=== PATIENT | female | born 1980 | race Caucasian/White ===

== ENCOUNTER 2022-12-13 11:44 | Outpatient (REF) | payer MEDICAID, SELFPAY ==
[2022-12-13 14:49] LABS: Estimated Average Glucose 134 mg/dL; Hemoglobin A1C 149.0862 umol/L; Hemoglobin A1c % 6.3 %
[2022-12-13 15:13] LABS: Alanine Aminotransferase 14 U/L (0-31); Albumin Level 3.9 g/dL (3.5-5.0); Alkaline Phosphatase 86 U/L (39-117); Anion Gap 17 (12-20); Aspartate Amino Transferase 12 U/L (5-31); Bilirubin Total 0.2 mg/dL (0.0-1.0); Blood Urea Nitrogen 11 mg/dL (9-16); Calcium 9.3 mg/dL (8.4-10.2); Carbon Dioxide 21 mmol/L (22-29); Chloride 106 mmol/L (96-108); Cholesterol 140 mg/dL; Estimated Glomerular Filt Rate > 60; Glucose Fasting 130 mg/dL (60-99); HDL Cholesterol 49 mg/dL; LDL Cholesterol Calculated 62 mg/dl; Sodium 140 mmol/L (135-145); Total Protein 7.2 g/dL (6.5-8.0); Triglycerides 149 mg/dL
== END 2022-12-13 11:45 | disposition home or self-care (01) ==
LOC: HO.CHCLDS 11:44
PROVIDERS: Visit Provider Internal Medicine
DX: E11.65 Type 2 diabetes mellitus with hyperglycemia (principal)
CPT/HCPCS: 36415; 80053; 80061; 83036

== ENCOUNTER 2023-01-01 18:36 | Outpatient (REF) | payer MEDICAID, SELFPAY ==
[2023-01-03 20:49] LABS: HPV mRNA E6/E7 rflx Not Detected (Not Detected)
== END 2023-01-01 18:37 | disposition home or self-care (01) ==
LOC: HO.HHCLNP 18:36
PROVIDERS: Visit Provider Advanced Practice Midwife
DX: Z12.4 Encounter for screening for malignant neoplasm of cervix (principal); Z11.51 Encounter for screening for human papillomavirus (HPV)
CPT/HCPCS: 87624; 88142

== ENCOUNTER 2023-01-10 16:16 | Outpatient (REF) | payer MEDICAID, SELFPAY ==
--- NOTE | ~2023-01-10 | MM_ITS ---
EXAMINATION: MM SCREENING DIGITAL BREAST TOMOSYNTHESIS, BILATERAL CLINICAL INFORMATION: Screening. Asymptomatic. COMPARISON: Mammography: This study is compared with prior exams dating back to 2015. TECHNIQUE: Digital breast tomosynthesis is performed in both the craniocaudal and mediolateral oblique views along with computer-aided detection (CAD). Synthesized 2D images are generated from the tomosynthesis. FINDINGS: There are scattered areas of fibroglandular density (ACR BI-RADS breast composition Category b). There are no significant masses, abnormal calcifications, or other abnormalities. MM/MM tomosynthesis screening BI IMPRESSION: No mammographic evidence of malignancy. ASSESSMENT: BI-RADS BI-RADS 1 - Negative RECOMMENDATION: Routine annual mammography screening. 1 year F/U This examination should not preclude the clinical evaluation of a suspicious palpable abnormality. This patient's information was entered into a reminder system with a target due date for their next mammogram.
== END 2023-01-10 16:17 | disposition home or self-care (01) ==
LOC: HO.MAMMO 16:16
PROVIDERS: PCP Internal Medicine; Visit Provider Advanced Practice Midwife
DX: Z12.31 Encounter for screening mammogram for malignant neoplasm of breast (principal)
CPT/HCPCS: 77063; 77067

== ENCOUNTER → 2023-01-10 16:30 | Outpatient (BNV) | payer MEDICAID, SELFPAY | PROVIDERS: PCP Internal Medicine; Visit Provider Radiology Diagnostic Radiology | DX: Z12.31 Encounter for screening mammogram for malignant neoplasm of breast (principal) | CPT/HCPCS: 77063; 77067 ==

== ENCOUNTER 2023-09-10 13:29 | Outpatient (REF) | payer MEDICAID, SELFPAY ==
--- NOTE | ~2023-09-10 | XR_ITS ---
EXAMINATION: XR SHOULDER, RIGHT CLINICAL INFORMATION: Chronic right shoulder pain. COMPARISON: None available. TECHNIQUE: AP external rotation, Grashey, scapular Y, and axillary views of the right shoulder. FINDINGS: Glenohumeral alignment is preserved. Minimal osteoarthritic changes in the acromioclavicular joint. Degenerative changes on limited views of the upper thoracic spine. Tiny, amorphous calcifications in the soft tissues along the superolateral aspect of the humeral head suggests rotator cuff pathology. There is a 10 mm oval density projecting over the humeral head on the axillary view, less well characterized on other views, possibly representing a bony lesion such as a bone island versus soft tissue focus. XR/XR shoulder RT min 2V IMPRESSION: 1. Tiny, amorphous calcifications in the soft tissues along the superolateral aspect of the humeral head suggests rotator cuff pathology. 2. There is a 10 mm oval density projecting over the humeral head on the axillary view, less well characterized on other views, possibly representing a bony lesion such as a bone island versus soft tissue focus.
== END 2023-09-10 13:30 | disposition home or self-care (01) ==
LOC: HO.HMGCX 13:29
PROVIDERS: PCP Internal Medicine; Visit Provider Internal Medicine
DX: M25.511 Pain in right shoulder (principal); G89.29 Other chronic pain
CPT/HCPCS: 36415; 73030; 80053; 80061; 83036

== ENCOUNTER 2023-09-10 14:13 | Outpatient (REF) | payer MEDICAID, SELFPAY ==
[2023-09-10 18:10] LABS: Estimated Average Glucose 166 mg/dL; Hemoglobin A1c % 7.4 % (<6.0)
[2023-09-10 18:12] LABS: Alanine Aminotransferase 21 U/L (0-31); Albumin Level 4.2 g/dL (3.5-5.0); Alkaline Phosphatase 68 U/L (39-117); Anion Gap 16 (12-20); Aspartate Amino Transferase 16 U/L (5-31); Bilirubin Total 0.3 mg/dL (0.0-1.0); Blood Urea Nitrogen 18 mg/dL (9-16); Calcium 9.4 mg/dL (8.4-10.2); Carbon Dioxide 19 mmol/L (22-29); Chloride 107 mmol/L (96-108); Cholesterol 167 mg/dL (<200); Estimated Glomerular Filt Rate > 60; Glucose Random 168 mg/dL (60-115); HDL Cholesterol 56 mg/dL (>40); LDL Cholesterol Calculated 83 mg/dL (<100); Potassium 4.2 mmol/L (3.3-5.1); Sodium 138 mmol/L (135-145); Total Protein 7.8 g/dL (6.5-8.0); Triglycerides 144 mg/dL (<150)
== END 2023-09-10 14:14 | disposition home or self-care (01) ==
LOC: HO.CHCLDS 14:13
PROVIDERS: Visit Provider Internal Medicine
DX: E11.65 Type 2 diabetes mellitus with hyperglycemia (principal)
CPT/HCPCS: 36415; 80053; 80061; 83036